=== PATIENT | male | born 1965 | race Caucasian/White ===

== ENCOUNTER 2022-05-30 10:19 | Emergency (ER) | payer MEDICAID, OTHER ==
[~2022-05-30] VITALS: Ht 185.4 cm; Wt 81.0 kg
[~2022-05-30 10:19] MED LIST: BP MED
[2022-05-30 12:15] LABS: COVID AG,FIA SOURCE NASAL SWAB
[2022-05-30 12:22] LABS: BASOPHILS % (AUTO) 0.6 % (0.0-2.0); EOSINOPHILS % (AUTO) 1.3 % (1.0-6.0); HEMATOCRIT 45.1 % (41-53); HEMOGLOBIN 15.1 g/dL (13.5-17.5); LYMPHOCYTES # (AUTO) 2.2 K/uL (1.0-4.8); LYMPHOCYTES % (AUTO) 28.2 % (22.0-44.0); MEAN CORPUSCULAR HEMOGLOBIN 33.4 pg (26.0-34.0); MEAN CORPUSCULAR HGB CONC 33.4 G/dL (31.0-37.0); MEAN CORPUSCULAR VOLUME 100 fL (80-100); MONOCYTES # (AUTO) 0.8 K/uL (0.1-1.0); MONOCYTES % (AUTO) 10.5 % (2.0-9.0); NEUTROPHILS # (AUTO) 4.7 K/uL (1.8-7.7); NEUTROPHILS % (AUTO) 59.4 % (40.0-70.0); PLATELET COUNT (AUTO) 338 K/uL (150-450); RED BLOOD CELL COUNT(AUTO) 4.52 MIL/uL (4.50-5.90); RED CELL DISTRIBUTION WIDTH 13.3 % (11.5-14.5)
[2022-05-30 12:23] LABS: APPEARANCE,URINE CLEAR (CLEAR); BILIRUBIN,URINE NEGATIVE (NEGATIVE); GLUCOSE, URINE (UA) NEGATIVE (NEGATIVE); KETONES,URINE TRACE mg/dL (NEGATIVE); LEUKOCYTE ESTERASE ,URINE NEGATIVE (NEGATIVE); NITRATE,URINE NEGATIVE (NEGATIVE); OCCULT BLOOD,URINE TRACE (NEGATIVE); PROTEIN,URINE TRACE mg/dL (NEGATIVE); SPECIFIC GRAVITIY, URINE 1.029 (1.003-1.030)
[2022-05-30 12:26] LABS: ANION GAP 4 mmol/L (8-16); CALCIUM, TOTAL 9.6 mg/dL (8.8-10.5); CARBON DIOXIDE 30 mmol/L (22-29); CHLORIDE 102 mmol/L (98-107); CREATININE 1.01 mg/dL (0.60-1.30); GLUCOSE,RANDOM 100 mg/dL (70-110); POTASSIUM 3.5 mmol/L (3.5-5.1); SODIUM SERUM 136 mmol/L (136-145); UREA NITROGEN, BLOOD 18 mg/dL (7-18)
[2022-05-30 12:28] LABS: AMPHET/METH SCREEN,URINE NEGATIVE (NEGATIVE); BARBITURATE SCREEN, URINE NEGATIVE (NEGATIVE); BENZODIAZEPINES SCREEN,URINE NEGATIVE (NEGATIVE); CANNABINOID SCREEN,URINE NEGATIVE (NEGATIVE); COCAINE SCREEN,URINE NEGATIVE (NEGATIVE); METHADONE SCREEN, URINE NEGATIVE (NEGATIVE); OPIATE SCREEN,URINE NEGATIVE (NEGATIVE)
[2022-05-30 12:29] LABS: PHENCYCLIDINE SCREEN,URINE NEGATIVE (NEGATIVE)
[2022-05-30 12:34] LABS: ALANINE AMINOTRANSFERASE 30 U/L (12-78); ALBUMIN 3.8 g/dL (3.4-5.0); ALKALINE PHOSPHATASE 100 U/L (46-116); ASPARTATE AMINOTRANSFERASE 28 U/L (15-37); BILIRUBIN,TOTAL 0.9 mg/dL (0.1-1.0); CREATINE KINASE, TOTAL ONLY 97 U/L (39-308); GLOMERULAR FILTR. RATE CALC > 60 mL/min (>60); TOTAL PROTEIN, SERUM 8.1 g/dL (6.4-8.2)
[2022-05-30 12:36] LABS: B-TYPE NATRIURETIC PEPTIDE 8 pg/mL (0-100)
[2022-05-30 12:36] LABS: BACTERIA,URINE None Seen /HPF (None Seen); RBC,URINE None Seen /HPF (0-2); SQUAMOUS EPITHELIAL CELL,UR Few /LPF (None Seen); WBC,URINE None Seen /HPF (0-5)
[2022-05-30 14:34] VITALS: BP 142/85
== END 2022-05-30 14:37 | disposition home or self-care (01) ==
LOC: EMS 10:19
DX: R53.1 Weakness (principal); Z20.822 Contact with and (suspected) exposure to COVID-19
CPT/HCPCS: 99285; 71045; 87426; 80053; 82550; 83880; 84484; 85025; 36415; 93005; 80307; 81001; G0480

== ENCOUNTER 2022-06-05 11:02 | Emergency (ER) | payer OTHER ==
[~2022-06-05] VITALS: Ht 185.4 cm; Wt 81.8 kg
[2022-06-05 12:48] LABS: BASOPHILS % (AUTO) 0.6 % (0.0-2.0); HEMATOCRIT 48.4 % (41-53); LYMPHOCYTES % (AUTO) 23.4 % (22.0-44.0); MEAN CORPUSCULAR VOLUME 100 fL (80-100); MONOCYTES # (AUTO) 0.7 K/uL (0.1-1.0); NEUTROPHILS # (AUTO) 5.8 K/uL (1.8-7.7); PLATELET COUNT (AUTO) 301 K/uL (150-450); RED BLOOD CELL COUNT(AUTO) 4.84 MIL/uL (4.50-5.90); RED CELL DISTRIBUTION WIDTH 13.2 % (11.5-14.5)
[2022-06-05 12:59] LABS: ANION GAP 4 mmol/L (8-16); CALCIUM, TOTAL 10.1 mg/dL (8.8-10.5); CARBON DIOXIDE 32 mmol/L (22-29); CHLORIDE 103 mmol/L (98-107); CREATININE 1.03 mg/dL (0.60-1.30); GLOMERULAR FILTR. RATE CALC > 60 mL/min (>60); GLUCOSE,RANDOM 113 mg/dL (70-110); POTASSIUM 4.4 mmol/L (3.5-5.1); SODIUM SERUM 139 mmol/L (136-145); UREA NITROGEN, BLOOD 16 mg/dL (7-18)
[2022-06-05 13:13] LABS: ALANINE AMINOTRANSFERASE 38 U/L (12-78); ALBUMIN 4.1 g/dL (3.4-5.0); ALKALINE PHOSPHATASE 109 U/L (46-116); ASPARTATE AMINOTRANSFERASE 31 U/L (15-37); BILIRUBIN,TOTAL 0.9 mg/dL (0.1-1.0); FREE T4 (FREE THYROXINE) 1.33 ng/dL (0.76-1.46); LIPASE 75 U/L (73-393); THYROID STIMULATING HORMONE 1.82 uIU/mL (0.36-3.74); TOTAL PROTEIN, SERUM 8.7 g/dL (6.4-8.2)
[2022-06-05 13:21] LABS: LACTIC ACID 2.2 mmol/L (0.4-2.0)
[2022-06-05 15:39] VITALS: BP 140/99
== END 2022-06-05 15:40 | disposition home or self-care (01) ==
LOC: EMS 11:02
DX: R53.1 Weakness (principal); F10.10 Alcohol abuse, uncomplicated; F15.10 Other stimulant abuse, uncomplicated; R26.81 Unsteadiness on feet
CPT/HCPCS: 99285; 70450; 80053; 83605; 83690; 84439; 84443; 84484; 85025; 36415; 93005; G0480

== ENCOUNTER 2024-02-20 08:46 | Emergency (ER) | payer MEDICAID, OTHER ==
[~2024-02-20] VITALS: Ht 180.3 cm; Wt 90.9 kg
[~2024-02-20 08:46] MED LIST changes: -BP MED; +LISI5TAB21 PO
[2024-02-20 09:11] VITALS: TEMP 98.3
[2024-02-20] MEDS ORDERED: CHOL200059 PO (09:26)
[2024-02-20] MEDS ORDERED: FURO40 PO (09:26)
[2024-02-20] MEDS ORDERED: ATOR40TA28 PO (09:26)
[2024-02-20] MEDS ORDERED: CYAN500T56 SL (09:26)
[2024-02-20] MEDS ORDERED: FERR325T27 PO (09:26)
[2024-02-20] MEDS: IBUPROFEN 600 MG TABLET PO ONE (11:34)
[2024-02-20] MEDS: METHOCARBAMOL 500 MG TABLET PO ONE (11:34)
[2024-02-20] MEDS: ACETAMINOPHEN 325 MG TABLET PO ONE (11:34)
[2024-02-20] MEDS: LIDOCAINE 5% TRANSDERMAL PATCH TD ONE (11:35)
[2024-02-20] MEDS ORDERED: METH-812 PO (12:44)
[2024-02-20 13:00] VITALS: BP 143/71; PULSE 91; RESP 18
== END 2024-02-20 13:58 | disposition home or self-care (01) ==
LOC: EMS 08:46
DX: M54.50 Low back pain, unspecified (principal); E78.00 Pure hypercholesterolemia, unspecified; I10 Essential (primary) hypertension
CPT/HCPCS: 99284; Z7502; Z7610